=== PATIENT | female | born 1990 | race Caucasian/White ===

== ENCOUNTER 2018-10-30 09:50 | Emergency (ER) | payer OTHER ==
[~2018-10-30] VITALS: Ht 170.2 cm; Wt 72.6 kg
[~2018-10-30 09:50] MED LIST: AMOXICILLIN500 MG PO; AVELOX400 MG PO; CIPRODEX OTIC7.5 ML AU; NAPROXEN500 MG PO; NORCO 5-325 TA1 EACH PO; PSEUDOEPHEDRINE30 MG PO; TYLENOL325 MG PO
== END 2018-10-30 10:23 | disposition home or self-care (01) ==
LOC: ED 09:50
DX: R50.9 Fever, unspecified (principal)

== ENCOUNTER 2019-02-17 18:18 | Emergency (ER) | payer SELFPAY ==
[~2019-02-17] VITALS: Ht 172.7 cm; Wt 65.8 kg
[2019-02-17] MEDS ORDERED: ZOFRAN4 MG PO (20:23)
== END 2019-02-17 20:35 | disposition home or self-care (01) ==
LOC: ED 18:18
DX: B34.9 Viral infection, unspecified (principal); F17.200 Nicotine dependence, unspecified, uncomplicated; Z88.5 Allergy status to narcotic agent
CPT/HCPCS: 80053; 81001; 83605; 83690; 84703; 85025; 87502; 96361; 96374; 99283-25; J2405; J7030

== ENCOUNTER 2020-01-01 09:15 | Emergency (ER) | payer OTHER ==
[~2020-01-01] VITALS: Ht 172.7 cm; Wt 65.8 kg
[~2020-01-01 09:15] MED LIST changes: +ZOFRAN4 MG PO
[2020-01-01] MEDS ORDERED: BACTRIM DS TAB1 EACH PO (11:17)
== END 2020-01-01 11:27 | disposition home or self-care (01) ==
LOC: ED 09:15
DX: K60.2 Anal fissure, unspecified (principal); N39.0 Urinary tract infection, site not specified; F17.200 Nicotine dependence, unspecified, uncomplicated; Z88.5 Allergy status to narcotic agent
CPT/HCPCS: 81001; 84703; 99283

== ENCOUNTER → 2020-02-17 | Emergency (ER) | payer OTHER ==
[~2020-02-17] VITALS: Ht 172.7 cm; Wt 65.8 kg
[~2020-02-17] MED LIST changes: +AUGMENTIN 875-1 EACH PO; +BACTRIM DS TAB1 EACH PO
== END ==
LOC: ED 20:21
DX: S01.01XA Laceration without foreign body of scalp, initial encounter (principal); J32.9 Chronic sinusitis, unspecified; Y04.8XXA Assault by other bodily force, initial encounter; F17.200 Nicotine dependence, unspecified, uncomplicated; Z88.5 Allergy status to narcotic agent
CPT/HCPCS: 70450; 99284-25; A9270

== ENCOUNTER 2020-09-12 08:55 | Emergency (ER) | payer OTHER ==
[~2020-09-12] VITALS: Ht 170.2 cm; Wt 68.0 kg
== END 2020-09-12 13:07 | disposition home or self-care (01) ==
LOC: ED 08:55
DX: K64.4 Residual hemorrhoidal skin tags (principal); F17.200 Nicotine dependence, unspecified, uncomplicated; Z88.5 Allergy status to narcotic agent
CPT/HCPCS: 74177; 80048; 85025; 99283-25; J1885; Q9967

== ENCOUNTER 2022-11-30 16:21 | Emergency (ER) | payer OTHER ==
[~2022-11-30] VITALS: Ht 170.2 cm; Wt 70.8 kg
[2022-11-30] MEDS ORDERED: PROPRANOLOL HCL20 MG PO (18:01)
[2022-11-30] MEDS ORDERED: HYDROXYZINE PAM25 MG PO (18:01)
[2022-11-30 18:21] LABS: BASOPHILS 0.4 % (0-2); EOSINOPHILS 5.3 % (0-6); HEMATOCRIT 41.7 % (35.0-50.0); HEMOGLOBIN 14.1 g/dL (12.0-18.0); LYMPHOCYTES 38.4 % (24-44); MCH 31.6 (27-36); MCHC 33.9 g/dl (30-36); MCV 93.2 fl (81-99); MONOCYTES 6.6 % (0-12); NEUTROPHILS 49.3 % (39-80); PLATELET COUNT 236 K/uL (140-440); RBC 4.47 M/ul (4.3-5.7); RDW 13.1 (10.5-15.0)
[2022-11-30] MEDS ORDERED: CEPHALEXIN500 M1 PO (18:38)
[2022-11-30 19:04] VITALS: BP 138/93
== END 2022-11-30 19:08 | disposition home or self-care (01) ==
LOC: ED 16:21
PROVIDERS: Family Medicine
DX: S90.861A Insect bite (nonvenomous), right foot, initial encounter (principal); F17.200 Nicotine dependence, unspecified, uncomplicated; W57.XXXA Bitten or stung by nonvenomous insect and other nonvenomous arthropods, initial encounter; Z88.5 Allergy status to narcotic agent; Z79.899 Other long term (current) drug therapy
CPT/HCPCS: 36415; 85025; 85384; 99283; A9270

== ENCOUNTER 2024-03-09 20:22 | Emergency (ER) | payer OTHER ==
[~2024-03-09] VITALS: Ht 170.2 cm; Wt 79.4 kg
[~2024-03-09 20:22] MED LIST changes: +CEPHALEXIN500 M1 PO; +HYDROXYZINE PAM25 MG PO; +PROPRANOLOL HCL20 MG PO
[2024-03-09] MEDS ORDERED: OSELTAMIVIR PHOSPHATE 75 MG HOME.PACK PO ONE (20:45)
[2024-03-09] MEDS ORDERED: ALBUTEROL/IPRATROPIUM 3 ML NEB INH ONE (20:45)
[2024-03-09] MEDS ORDERED: LACTATED RINGER'S 1,000 ML IV ONE (20:45)
[2024-03-09] MEDS ORDERED: DEXAMETHASONE SOD PHOS 10 MG/ML VIAL IV ONE (20:45)
[2024-03-09 20:47] LABS: BASOPHILS 1.9 % (0-2); HEMATOCRIT 40.4 % (35.0-50.0); HEMOGLOBIN 13.5 g/dL (12.0-18.0); LYMPHOCYTES 14.7 % (24-44); MCH 31.6 (27-36); MCHC 33.5 g/dl (30-36); MCV 94.2 fl (81-99); MONOCYTES 8.5 % (0-12); NEUTROPHILS 72.9 % (39-80); PLATELET COUNT 171 K/uL (140-440); RBC 4.28 M/ul (4.3-5.7); RDW 13.4 (10.5-15.0)
[2024-03-09] MEDS ORDERED: BUPROPION XL150 MG PO (20:50)
[2024-03-09 21:01] LABS: ALBUMIN 3.6 g/dL (3.4-5.0); ALBUMIN/GLOBULIN RATIO 1.03 (1.1-2.4); BILIRUBIN, TOTAL 0.3 ng/dL (0.2-1.0); BUN/CREATININE RATIO 11.76 (6.0-28.6); CALCIUM 8.4 mg/dL (8.5-10.1); CREATININE, SERUM 1.02 mg/dL (0.55-1.02); PROTEIN, TOTAL 7.1 g/dL (6.4-8.2)
[2024-03-09] MEDS ORDERED: INHALER, ASSIST DEVICES 1 EACH SPACER MISC ONE (21:30)
[2024-03-09] MEDS ORDERED: ALBUTEROL SULFATE 8 GM HOME.PACK INH ONE (21:30)
[2024-03-09 21:40] VITALS: BP 134/84
== END 2024-03-09 21:40 | disposition home or self-care (01) ==
LOC: ED 20:22
PROVIDERS: Internal Medicine
DX: J10.1 Influenza due to other identified influenza virus with other respiratory manifestations (principal); F17.200 Nicotine dependence, unspecified, uncomplicated; Z88.5 Allergy status to narcotic agent; Z79.899 Other long term (current) drug therapy
CPT/HCPCS: 36415; 71045; 80053; 83735; 84703; 85025; 94640; 96374; 99285-25; A9270; J1100; J7121